=== PATIENT | male | born 1985 | race Caucasian/White ===

== ENCOUNTER 2022-06-14 03:56 | Emergency (ER) | payer MEDICAID ==
[~2022-06-14] VITALS: Ht 170.2 cm; Wt 68.0 kg
[~2022-06-14 03:56] MED LIST: CEPH-548 PO; IBUP-1970 PO
[2022-06-14 04:11] VITALS: BP_SYST 134
[2022-06-14] MEDS ORDERED: IBUP-1969 PO (04:43)
[2022-06-14] MEDS ORDERED: HYDR-3921 PO (04:43)
== END 2022-06-14 05:21 | disposition home or self-care (01) ==
LOC: SED 03:56
DX: S92.334A Nondisplaced fracture of third metatarsal bone, right foot, initial encounter for closed fracture (principal); Z79.899 Other long term (current) drug therapy; W21.02XA Struck by soccer ball, initial encounter; Y93.89 Activity, other specified; Y92.89 Other specified places as the place of occurrence of the external cause; Y99.8 Other external cause status
CPT/HCPCS: 99283

== ENCOUNTER 2022-06-17 11:31 | Inpatient (IN) | payer MEDICAID ==
[~2022-06-17] VITALS: Ht 167.6 cm; Wt 64.4 kg
[~2022-06-17 11:31] MED LIST changes: +HYDR-3921 PO; +IBUP-1969 PO
--- NOTE | 2022-06-17 11:34 | NUR ---
Patient triaged and placed in waiting room. VSS and patient appears in no acute distress at this time. Accompanied by SELF, awaiting available bed, and MD notified of need for MSE.
[2022-06-17 11:35] VITALS: BP_SYST 135
--- NOTE | 2022-06-17 11:35 | NUR ---
PT STATES THAT HE BROKE HIS FOOT ON 06/14 AND THEN TODAY HE FELL AND "RE-BROKE" IT. 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 TODAY PRESENTS WITH RIGHT ARM/HAND REDNESS AND SWELLING. PT STATES THAT HE NEEDS TO GET ADMITTED BECAUSE IT IS COLD OUTSIDE AND NEEDS A PLACE TO SLEEP
--- NOTE | 2022-06-17 13:10 | NUR ---
WALKING AROUND WAITING ROOM WITHOUT PAIN. AWAITING TO BE SEEN BY
--- NOTE | 2022-06-17 14:15 | NUR ---
DR ZAMORA OUT TO TRIAGE ROOM FOR EVALATION
[2022-06-17 15:06] LABS: BASOPHILS % (AUTO) 0.2 % (0.0-2.0); EOSINOPHILS % (AUTO) 0.5 % (0.0-4.0); HEMATOCRIT 41.5 % (36-54); HEMOGLOBIN 13.9 g/dL (14.0-18.0); LYMPHOCYTES # (AUTO) 1.3 K/uL (1.0-5.5); LYMPHOCYTES % (AUTO) 16.6 % (20.5-51.5); MEAN CORPUSCULAR HEMOGLOBIN 28 pg (27-31); MEAN CORPUSCULAR HGB CONC 33 % (32-36); MEAN CORPUSCULAR VOLUME 84 fL (79.0-98.0); MONOCYTES # (AUTO) 0.6 K/uL (0.0-1.0); MONOCYTES % (AUTO) 7.2 % (1.7-9.3); NEUTROPHILS # (AUTO) 5.8 K/uL (1.8-7.7); NEUTROPHILS % (AUTO) 75.5 % (40.0-70.0); PLATELET COUNT (AUTO) 300 K/uL (130-430); RED BLOOD CELL COUNT(AUTO) 4.93 MIL/uL (4.2-6.2); RED CELL DISTRIBUTION WIDTH 14.1 % (9.0-15.0); WHITE BLOOD COUNT (AUTO) 7.7 K/uL (4.8-10.8)
[2022-06-17 15:21] LABS: CALCIUM 8.7 mg/dL (8.4-11.0); CREATININE 1.1 mg/dL (0.55-1.30)
[2022-06-17 15:26] LABS: ALBUMIN 3.5 g/dL (3.4-4.8); C-REACTIVE PROTEIN QUANT 5.2 mg/dL (0-0.5); TOTAL BILIRUBIN 0.3 mg/dL (0.0-1.0)
--- NOTE | 2022-06-17 15:46 | NUR ---
NOTIFIED ED ADMITTING, LU[facility], REGARDING DR. ZAMORA'S REQUEST FOR ADMISSION/TRANSFER. PER DR. ZAMORA, PT IS STABLE FOR TRANSFER. WILL CONTACT PROCESS CAMERA OPERATOR REGARDING PT STATUS. PER [facility]: [facility]
[2022-06-17] MEDS ORDERED: CLINDAMYCIN 600 MG in D5W 50 ML IV ONE (16:00)
--- NOTE | 2022-06-17 16:10 | NUR ---
PT STATES HE IS HOMELESS, PT HAS CLOTHES AND SHOES, GIVEN DOUBLE MEAL TRY PER REQUEST. RESTING AWAITING ADMISSION ORDERS
--- NOTE | 2022-06-17 17:46 | NUR ---
LATHE SETUP OPERATOR HAS NOT RESPONDED IN TWO HOURS OF REQUEST. PER DR. ZAMORA, PAGE DIRECTOR CALL CENTER SALES HOSPITALIST DUE TO DELAY OF CARE.
[2022-06-17] MEDS ORDERED: NALOXONE HCL 0.4 MG/ML AMP (NARCAN) IVP PRN ×2 (18:30)
[2022-06-17] MEDS ORDERED: HYDROcodone/ACETAMIN 5-325 MG TAB (NORCO/ VICODIN) PO PRN (18:30)
[2022-06-17] MEDS ORDERED: ONDANSETRON HCL 4 MG/2 ML VIAL IVP PRN (18:30)
[2022-06-17] MEDS ORDERED: ACETAMINOPHEN 325 MG TABLET PO PRN (18:45)
[2022-06-17] MEDS ORDERED: IBUPROFEN 600 MG TABLET PO PRN (18:45)
--- NOTE | 2022-06-17 19:02 | NUR ---
DR VICTORIA HERE TO EVALUATE PT.
[2022-06-17 19:21] LABS: BILIRUBIN,URINE NEGATIVE (NEGATIVE); CLARITY/URINE CLEAR (CLEAR); COLOR,URINE YELLOW (YELLOW); GLUCOSE,URINE NEGATIVE (NEGATIVE); KETONES,URINE TRACE (NEGATIVE); LEUKOCYTE ESTERASE ,URINE NEGATIVE (NEGATIVE); NITRITE, URINE NEGATIVE (NEGATIVE); PROTEIN URINE NEGATIVE (NEGATIVE); UROBILINOGEN,URINE 0.2 (0.2-1.0)
[2022-06-17 19:40] LABS: BLOOD, URINE TRACE (NEGATIVE)
[2022-06-17 19:44] LABS: BARBITURATE, URINE NEGATIVE (NEG <=200); BENZODIAZEPINE, URINE NEGATIVE (NEG <=150); CANNABINOID, URINE POSITIVE (NEG <=50); COCAINE, URINE NEGATIVE (NEG <=150); METHAMPHETAMINES SCREEN,URINE POSITIVE (NEG <=500); OPIATE, URINE NEGATIVE (NEG <=100); PHENCYCLIDINE SCREEN,URINE NEGATIVE (NEG <=25); UR TRICYCLIC ANTIDEPRESSANTS NEGATIVE (NEG <=300); URINE AMPHETAMINE POSITIVE (NEG <=500); URINE METHADONE NEGATIVE (NEG <=200); URINE OXYCODONE SCREEN NEGATIVE (NEG <=100); URINE PROPOXYPHENE SCREEN NEGATIVE (NEG <=300)
[2022-06-17 19:45] LABS: BACTERIA,URINE FEW /HPF (None Seen); MUCUS,URINE None Seen /LPF (None Seen); RBC,URINE 0-3 /HPF (0-3); WBC,URINE 0-3 /HPF (0-3)
--- NOTE | 2022-06-17 20:31 | NUR ---
Admit bed requested Patient will be admitted to care of . Admitted to Tele unit. Diagnosis Hand Cellulitis Inpatient (Yes or No) yes Observation (Yes or No) no Orientation concerns or request close to nursing station (Yes or No) no Covid Status negative On vent or bipap no Isolation requirements no Needs a sitter no From Home (Yes or if No enter name of facility) homeless Requires Dialysis (Yes or No) no Med Rec Completed (Yes of No) reviewed by Dr Mercado
[2022-06-17] MEDS: AMPICILLIN SODIUM/SULBACTAM NA 3 GM in NS 100 ML IV SCH (21:57)
[2022-06-17] MEDS ORDERED: AMPICILLIN SODIUM/SULBACTAM NA 3 GM VIAL ONE (21:59)
--- NOTE | 2022-06-17 22:30 | NUR ---
ADMISSION NOTE Received patient from ER via gurney. Patient admitted with diagnosis of hand cellulitis. Patient is awake, alert, oriented X 4. Patient oriented to hospital room, call light, toileting, pain management and safety-teach back done. Patient informed that Darlene will be his nurse and that their room number is 118-A. Personal belongings checked and Belongings List documented. Call light within reach, side rails x2,endorsed to Darlene primary nurse to continuity of care.
--- NOTE | 2022-06-17 22:30 | NUR ---
Transfer to 118A via ACLS protocol. Licensed nurse present. IV present no signs or symptoms of infiltration. REPORT GIVEN TO RADHA STEINER
[2022-06-17 22:45] VITALS: BP_SYST 124
--- NOTE | 2022-06-17 23:10 | NUR ---
Initial RN notes Pt AAOx4, VSS, afebrile. Pt's R. hand 3+ edematous and R. stave planer tender to touch, swollen, and erythema noted with splint and wrapped with troy bandage, dry blisters/scars noted. Multiple tattoos. Call light within reach. Bed low, locked, siderails up x3. Pt is homeless and states he was at [facility] for 2 days. Pt has bags of belongings, belonging list done. To monitor. .
[2022-06-18] MEDS ORDERED: AMPICILLIN SODIUM/SULBACTAM NA 3 GM VIAL ONE (00:46)
[2022-06-18] MEDS: FAMOTIDINE 20 MG TABLET PO SCH ×3 (01:28→20:51)
--- NOTE | 2022-06-18 01:33 | NUR ---
MRSA nares collected and sent to lab.
--- NOTE | 2022-06-18 05:37 | NUR ---
CONSULTATION PAGED REASON FOR CONSULTATION: FOOT FX WAS CONSULT CALLED? Y PERSON WHO WAS NOTIFIED: BOB CONSULTING PHYSICIAN: PRIYA SOTO (PALLAVI ELIAS IS BOARD ATTENDANT) REQUESTING PHYSICIAN: DR. VICTORIA
[2022-06-18] MEDS: AMPICILLIN SODIUM/SULBACTAM NA 3 GM in NS 100 ML IV SCH ×6 (06:14→23:26)
[2022-06-18] MEDS: HYDROcodone/ACETAMIN 10-325 MG TAB PO PRN (06:20)
--- NOTE | 2022-06-18 06:22 | NUR ---
Closing notes Pt alert, awake, afebrile. Pt medicated for c/o severe pain R. hand with Hughes 10mg as needed. IV antibiotic Unasyn administered as ordered R. AC22G good blood return. Call light within reach. Safety maintained. To endorse to AM nurse.
[2022-06-18 08:00] VITALS: BP_SYST 125
--- NOTE | 2022-06-18 08:00 | NUR ---
Initial notes Eating breakfast, pain is controlled. Right foot with dressing. afebrile No distress. Enc to call for help as needed.
--- NOTE | 2022-06-18 10:00 | NUR ---
MD rounds Seen by Dr. Brown ( ortho)
[2022-06-18 12:37] VITALS: BP_SYST 148
[2022-06-18 12:39] VITALS: BP_SYST 128
--- NOTE | 2022-06-18 13:07 | NUR ---
Report given to NATHANAEL INIGUEZ for continuity of care.
--- NOTE | 2022-06-18 14:30 | NUR ---
ROUNDS: PT STANDING NEAR BEDSIDE ORGANIZING HIS PERSONAL BELONGS. ASKED IF NEEDED ANYTHING AND HE SAID NO. ALL NEEDS MET AT THIS SAFETY, CHECKS MADE AND CALL LIGHT WITHIN REACH.
[2022-06-18 16:00] VITALS: BP_SYST 127
--- NOTE | 2022-06-18 16:25 | NUR ---
ROUNDS: PT SITTING IN BED LISTENING TO MUSIC ON HIS PHONE. NO S/S OF DISTRESS OR PAIN REPORTED. BREATHING EVEN AND UNLABORED ON RA. ALL NEEDS MET AT THIS TIME , SAFETY CHECKS MADE AND CALL LIGHT WITHIN REACH.
--- NOTE | 2022-06-18 18:24 | NUR ---
CLOSING NOTES: PT SITTING IN BED ON HIS CELL PHONE. NO S/S OF DISTRESS OR PAIN REPORTED. BREATHING EVEN AND UNLABORED ON RA. ALL NEEDS MET AT THIS TIME , SAFETY CHECKS MADE AND CALL LIGHT WITHIN REACH.
[2022-06-18 20:00] VITALS: BP_SYST 141
[2022-06-19 02:00] VITALS: BP_SYST 130
[2022-06-19] MEDS: AMPICILLIN SODIUM/SULBACTAM NA 3 GM in NS 100 ML IV SCH ×4 (05:48→23:40)
[2022-06-19 08:00] VITALS: BP_SYST 140
[2022-06-19] MEDS: FAMOTIDINE 20 MG TABLET PO SCH ×2 (08:25→20:59)
--- NOTE | 2022-06-19 10:00 | NUR ---
Director Counseling Bureau re: homelessness Met with patient at bedside to discuss his recent referral for homelessness. The patient was awake and alert at the time of my visit. Per patent, he is homeless and resides in the [place] [facility]. The patient was recently [facility], and states he went to stay in his area of preference, in [facility]. 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 The patient states he was independent with his care needs. He required no assistive devices. He states he does not have any familial support. 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 The patient states he receives approximately $190 a month from [employer] and is no longer receiving food stamps due to not attending his scheduled appointment. The patient does not have a PCP. The discharge plan is to return back to the [facility]. Prior to leaving I discussed homeless resources with the patient. The resources offered and discussed include inpatient treatment centers, county clinics, and homeless shelters within [facility]. The patient requested a letter from myself indicating that he is here in the hospital. Transportation and weather appropriate clothing was declined, as the patient indicted he could arrange his own transportation and can call his own transportation. A Homeless waiver form was completed and placed in his physical chart. Addendum: 06/19/22 at 1414 by Amy MONZON Amended: Links added.
[2022-06-19 12:00] VITALS: BP_SYST 135
--- NOTE | 2022-06-19 14:00 | NUR ---
patient sitting in his bed. Post op shoe on bed. patient states that his shoe fits and that he was walking in the [place]wang with it earlier.
[2022-06-19 16:29] VITALS: BP_SYST 139
--- NOTE | 2022-06-19 18:48 | NUR ---
Shift Summary: patient is AAXO4. vitals are stable. patient updated on plan of care for shift. patient unable to have MRI done due to patient stating he previously had wire in ear from a prior procedure. wet process technician and physician informed and aware. patient states he has no questions or concern at this time. will endorse to oncoming nurse. call light within reach, bed set to low and locked.
[2022-06-19] MEDS: HYDROcodone/ACETAMIN 10-325 MG TAB PO PRN (18:52)
--- NOTE | 2022-06-19 19:16 | NUR ---
OPENING NOTES: Patient received from AM shift. Patient is AA&Ox4 able to make needs known with call light within reach. No s/s of distress is noted at this time, chest rise is even and unlabored on RA. Safety measures are in place as per protocol. Will resume care and continue to monitor throughout the shift.
[2022-06-19 20:00] VITALS: BP_SYST 137
[2022-06-19] MEDS: TEMAZEPAM 15 MG CAPSULE PO PRN (20:59)
[2022-06-20] VITALS: BP_SYST 123
[2022-06-20] MEDS: AMPICILLIN SODIUM/SULBACTAM NA 3 GM in NS 100 ML IV SCH ×2 (05:47→11:21)
--- NOTE | 2022-06-20 07:00 | NUR ---
CLOSING NOTES: Patient is in bed resting no s/s of distress is noted at this time. Patient is ambulatory and able to perform ADLs independently. Patient is AA&Ox4 able to make needs known and able to use call light. Chest rise is even and unlabored on RA. Safety measures are in place as per protocol. Will differ care to AM shift nurse for continuity of care.
[2022-06-20 08:00] VITALS: BP_SYST 132
[2022-06-20 08:23] LABS: BASOPHILS % (AUTO) 0.4 % (0.0-2.0); EOSINOPHILS # (AUTO) 0.1 K/uL (0.0-0.4); EOSINOPHILS % (AUTO) 1.7 % (0.0-4.0); HEMATOCRIT 41.5 % (36-54); HEMOGLOBIN 13.6 g/dL (14.0-18.0); LYMPHOCYTES % (AUTO) 38.2 % (20.5-51.5); MEAN CORPUSCULAR HEMOGLOBIN 28 pg (27-31); MEAN CORPUSCULAR HGB CONC 33 % (32-36); MEAN CORPUSCULAR VOLUME 85 fL (79.0-98.0); MONOCYTES # (AUTO) 0.6 K/uL (0.0-1.0); MONOCYTES % (AUTO) 11.2 % (1.7-9.3); NEUTROPHILS # (AUTO) 2.5 K/uL (1.8-7.7); NEUTROPHILS % (AUTO) 48.5 % (40.0-70.0); PLATELET COUNT (AUTO) 325 K/uL (130-430); RED BLOOD CELL COUNT(AUTO) 4.91 MIL/uL (4.2-6.2); RED CELL DISTRIBUTION WIDTH 14.2 % (9.0-15.0); WHITE BLOOD COUNT (AUTO) 5.1 K/uL (4.8-10.8)
[2022-06-20] MEDS: FAMOTIDINE 20 MG TABLET PO SCH ×2 (08:34→21:00)
[2022-06-20 08:47] LABS: CALCIUM 8.9 mg/dL (8.4-11.0); CREATININE 1.01 mg/dL (0.55-1.30)
--- NOTE | 2022-06-20 11:40 | NUR ---
Shift Summary: patient is AAOX4. vitals are stable. patient updated on plan of care for shift. patient stated he needed to leave to see his home lending officer. patient informed if he leaves AMA, he will not be able to return unless he re-checks in through the emergency room. patient informed if there is anything we could do to assist patient with needing to meet his home lending officer to let us know. patient states he will attempt to gather more information regarding home lending officer meeting. will continue to monitor. call light within reach, bed set on low and locked.
[2022-06-20 12:00] VITALS: BP_SYST 127
[2022-06-20] MEDS ORDERED: LACTOBACILLUS RHAMNOSUS GG 1 CAP CAPSULE PO ONE (15:15)
[2022-06-20 16:00] VITALS: BP_SYST 129
[2022-06-20] MEDS: CLINDAMYCIN 600 mg/50mL D5W 50 ML IV SCH ×2 (17:21→23:35)
[2022-06-20 20:00] VITALS: BP_SYST 137
[2022-06-20] MEDS: LACTOBACILLUS RHAMNOSUS GG 1 CAP CAPSULE PO SCH (21:00)
[2022-06-20] MEDS: TEMAZEPAM 15 MG CAPSULE PO PRN (21:01)
[2022-06-21 00:25] VITALS: BP_SYST 134
[2022-06-21] MEDS: CLINDAMYCIN 600 mg/50mL D5W 50 ML IV SCH ×3 (05:56→17:21)
[2022-06-21 08:00] VITALS: BP_SYST 149
[2022-06-21] MEDS: FAMOTIDINE 20 MG TABLET PO SCH ×2 (08:24→21:00)
[2022-06-21] MEDS: LACTOBACILLUS RHAMNOSUS GG 1 CAP CAPSULE PO SCH ×2 (08:24→21:00)
--- NOTE | 2022-06-21 10:14 | NUR ---
Shift Summary: patient is AAOX4. vitals are stable. patient updated on plan of care for shift. patient states he has no questions or concerns at this time. patient is on contact isolations. will continue to monitor. call light within reach. bed set to low and locked.
[2022-06-21 12:00] VITALS: BP_SYST 138
[2022-06-21 16:00] VITALS: BP_SYST 127
[2022-06-22] VITALS (7 sets, daily range): BP systolic 131–150
[2022-06-22] MEDS: CLINDAMYCIN 600 mg/50mL D5W 50 ML IV SCH ×3 (02:15→11:02)
--- NOTE | 2022-06-22 02:15 | NUR ---
IV start, antibiotic #22G angiocath placed to LAC by second nurse on third attempt. Patient tolerated. Administered due antibiotic, Clindamycin IVPB, infusing well. Patient is awake, sitting on bed w/legs dangle and using his phone.
--- NOTE | 2022-06-22 05:47 | NUR ---
closing notes pt is stable and he ate his food. No distress was noted with bed in low position, break set, alarm set. Pt appear to be resting .
[2022-06-22] MEDS: LACTOBACILLUS RHAMNOSUS GG 1 CAP CAPSULE PO SCH (08:40)
[2022-06-22] MEDS: FAMOTIDINE 20 MG TABLET PO SCH (08:40)
--- NOTE | 2022-06-22 10:12 | NUR ---
Shift Summary: patient is AAOX4. vitals are stable. patient updated on plan of care for shift. patient is on contact isolation. patient states he has no questions or concerns at this time. will continue to monitor. patient educated on importance of not tampering with medical devices due to high risk for injury. patient states he understands. will continue to monitor. call light within reach, bed set to low and locked.
[2022-06-22] MEDS ORDERED: LACT1CAP57 PO (12:33)
[2022-06-22] MEDS ORDERED: CLE150 PO (12:33)
--- NOTE | 2022-06-22 13:45 | NUR ---
Driver Material Handler re: D/C to care home in to see patient regarding his discharge to a care home. At the time of my visit, the patient was disabling a cell phone and portable speaker in his room on his bed. The patient was observed to have 5 cell phones, 1 portable speaker, 3 rechargeable battery packs, 3 charging blocks, and multiple cords. Per patient, he is aware of his discharge and states he has an appointment with [facility] in [place]. He states he is ready to leave, but requested a clear plastic bag. I inquired about his transport, and he stated he continued to state he can arrange his own transport. I informed him that the nurse will bring in completed discharge paper work once it is complete. Prior to leaving the unit, I attempted to talk with JATIN Carrasco, however he was not available and was at lunch. I spoke to the desk nurse who advised she would inform the nurse.
[2022-06-22] MEDS ORDERED: CLINDAMYCIN HCL 150 MG CAPSULE PO SCH (18:00)
--- NOTE | 2022-06-22 18:59 | NUR ---
Discharge Summary: Patient is AAOX4. vitals are stable. PIV removed per order. patient given discharge instructions documents regarding activity, diet, follow up appointment and medication. patient states he has no questions or concerns upon discharge. patient states he has all of his personal belongings present with him and accounted for with him upon discharge. patient leaving unit with assistance from staff members.
== END 2022-06-22 19:00 | disposition home or self-care (01) | DRG 383 ==
LOC: SED 11:31 → STU 18:01 → SMU 06-18 10:30
PROVIDERS: ADMIT Internal Medicine; ATTEND Internal Medicine
DX: L03.113 Cellulitis of right upper limb (principal); F19.10 Other psychoactive substance abuse, uncomplicated; S92.331A Displaced fracture of third metatarsal bone, right foot, initial encounter for closed fracture; X58.XXXA Exposure to other specified factors, initial encounter; Z20.822 Contact with and (suspected) exposure to COVID-19; Z79.891 Long term (current) use of opiate analgesic; Z79.899 Other long term (current) drug therapy; Z59.00 Homelessness unspecified; Y93.89 Activity, other specified; Y92.89 Other specified places as the place of occurrence of the external cause; Y99.8 Other external cause status
CPT/HCPCS: 36415; 73200-TC; 76376; 80048; 80053; 80307; 81000; 83605; 85025; 86140; 87040; 87070-TC; 87081; 87186-TC; 99285; G0378; J0295; J3490; J7060